=== PATIENT | male | born 1955 | race Caucasian/White ===

== ENCOUNTER 2021-04-23 11:41 | Emergency (ER) | payer OTHER, MEDICARE, SELFPAY ==
[2021-04-23 11:43] VITALS: BP 150/99; PULSE 101; RESP 18; TEMP 36.9; O2SAT 99; BMI 39.0
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
[2021-04-23] MEDS: Acetaminophen 500 MG Tablet 1000 MG PO (12:36)
--- NOTE | 2021-04-23 12:40 | ED.RN ---
Patient confirms drug/alcohol testing needed for employer, [employer]OI form given to patient to complete.
[2021-04-23 13:42] VITALS: BP 140/91; PULSE 70; RESP 15; O2SAT 99
[2021-04-23 14:29] VITALS: PULSE 68; RESP 16
== END 2021-04-23 14:41 | disposition home or self-care (01) ==
PROVIDERS: Emergency Provider Emergency Medicine; PCP Family Medicine; Visit Provider Emergency Medicine
DX: S09.90XA Unspecified injury of head, initial encounter (principal); E11.9 Type 2 diabetes mellitus without complications; Z79.01 Long term (current) use of anticoagulants; Z87.891 Personal history of nicotine dependence; I25.10 Atherosclerotic heart disease of native coronary artery without angina pectoris; S40.012A Contusion of left shoulder, initial encounter; R19.7 Diarrhea, unspecified; I25.2 Old myocardial infarction; Z95.5 Presence of coronary angioplasty implant and graft; Z79.82 Long term (current) use of aspirin; Z79.899 Other long term (current) drug therapy; V69.88XA Occupant (driver) (passenger) of heavy transport vehicle injured in other specified transport accidents, initial encounter; Y93.9 Activity, unspecified; Y92.9 Unspecified place or not applicable; E66.9 Obesity, unspecified; Z68.39 Body mass index [BMI] 39.0-39.9, adult
CPT/HCPCS: 70450; 73030; 99284